=== PATIENT | female | born 1995 | race African-American/Black ===

== ENCOUNTER 2017-12-26 14:10 | Emergency (ER) | payer OTHER ==
[2017-12-26 14:19] VITALS: BP 113/75
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
[2017-12-26] MEDS ORDERED: ACETAMINOPHEN 325 MG TABLET PO ONE (15:13)
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
== END 2017-12-26 16:58 | disposition home or self-care (01) ==
LOC: ER 14:10
DX: S39.012A Strain of muscle, fascia and tendon of lower back, initial encounter (principal); S16.1XXA Strain of muscle, fascia and tendon at neck level, initial encounter; M25.512 Pain in left shoulder; V49.9XXA Car occupant (driver) (passenger) injured in unspecified traffic accident, initial encounter; M41.9 Scoliosis, unspecified
CPT/HCPCS: 72050; 72110; 81025; 99283